=== PATIENT | male | born 1965 | race African-American/Black ===

== ENCOUNTER 2018-12-18 09:16 | Emergency (ER) | payer OTHER ==
[~2018-12-18] VITALS: Ht 274.3 cm; Wt 84.4 kg
[2018-12-18 09:21] VITALS: BP 142/83
--- NOTE | 2018-12-18 09:35 | NUR ---
Patient discharged to home in stable condition. Written and verbal after care instructions given. Patient verbalizes understanding of instruction.
== END 2018-12-18 09:37 | disposition home or self-care (01) ==
LOC: ER 09:16
DX: F10.129 Alcohol abuse with intoxication, unspecified (principal); Y90.9 Presence of alcohol in blood, level not specified; Z98.890 Other specified postprocedural states

== ENCOUNTER 2019-05-04 11:29 | Emergency (ER) | payer MEDICAID, OTHER ==
[~2019-05-04] VITALS: Ht 170.2 cm; Wt 82.6 kg
[2019-05-04] MEDS ORDERED: PANT40TA4 PO (11:50)
[2019-05-04] MEDS ORDERED: DIPH50CA38 PO (11:50)
[2019-05-04] MEDS ORDERED: BENA20TA9 PO (11:50)
[2019-05-04] MEDS ORDERED: MIRT15TA PO (11:50)
--- NOTE | 2019-05-04 11:51 | NUR ---
DR MENDIETA AT BEDSIDE FOR EVAL.
--- NOTE | 2019-05-04 12:00 | NUR ---
PT TO RADIOLOGY FOR HEAD CT SCAN VIA [facility].
--- NOTE | 2019-05-04 12:10 | NUR ---
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
[2019-05-04 12:33] LABS: BASOPHILS % (AUTO) 0.4 % (0.0-2.0); EOSINOPHILS % (AUTO) 7.5 % (0.0-6.0); HEMATOCRIT 48 % (39-51); HEMOGLOBIN 16.2 g/dL (13.5-17.5); LYMPHOCYTES % (AUTO) 24.1 % (20.0-44.0); MEAN CORPUSCULAR HGB CONC 34 g/dl (31.0-36.0); MEAN CORPUSCULAR VOLUME 96 fL (80-96); MONOCYTES # (AUTO) 0.5 /CMM (0.1-1.30); MONOCYTES % (AUTO) 11.9 % (2.0-12.0); NEUTROPHILS # (AUTO) 2.3 /CMM (1.8-8.9); NEUTROPHILS % (AUTO) 56.1 % (43.0-81.0); PLATELET COUNT (AUTO) 195 /CMM (150-450); RED BLOOD CELL COUNT(AUTO) 5.02 MIL/uL (4.5-6.0); WHITE BLOOD COUNT (AUTO) 4.1 K/uL (4.3-11.0)
[2019-05-04 12:40] LABS: CALCIUM, SERUM 8.3 mg/dL (8.5-10.1); CREATININE 1.2 mg/dL (0.6-1.3); POTASSIUM 4.1 mmol/L (3.5-5.1)
[2019-05-04 12:46] LABS: BILIRUBIN,DIRECT 0.1 mg/dL (0.0-0.2); BILIRUBIN,TOTAL 0.4 mg/dL (0.2-1.0); TOTAL PROTEIN, SERUM 6.2 g/dL (6.4-8.2)
--- NOTE | 2019-05-04 13:11 | NUR ---
Patient discharged to home in stable condition. Written and verbal after care instructions given. Patient verbalizes understanding of instruction.
[2019-05-04 13:12] VITALS: BP 124/82
== END 2019-05-04 13:13 | disposition home or self-care (01) ==
LOC: ER 11:29
DX: R20.2 Paresthesia of skin (principal); R51 Headache; R42 Dizziness and giddiness; I10 Essential (primary) hypertension; Z98.890 Other specified postprocedural states; Z79.899 Other long term (current) drug therapy
CPT/HCPCS: 36415; 70450-TC; 72125-TC; 80048-TC; 80076-TC; 82962-TC; 85025-TC

== ENCOUNTER 2022-11-29 07:48 | Emergency (ER) | payer MEDICAID ==
[~2022-11-29] VITALS: Ht 170.2 cm; Wt 87.5 kg
[~2022-11-29 07:48] MED LIST: BENA20TA9 PO; DIPH50CA38 PO; MIRT-121 PO; PANT40TA49 PO
[2022-11-29] MEDS ORDERED: IV NS 0.9% 1,000 ML BAG IV ONE (08:00)
[2022-11-29 08:24] LABS: APPEARANCE,URINE CLEAR (CLEAR); BILIRUBIN,URINE NEGATIVE (NEGATIVE); BLOOD, URINE NEGATIVE Ery/uL (NEGATIVE); COLOR,URINE YELLOW (YELLOW); KETONES,URINE NEGATIVE (NEGATIVE); LEUKOCYTE ESTERASE ,URINE NEGATIVE (NEGATIVE); NITRITE, URINE NEGATIVE (NEGATIVE); PH,URINE 5.5 (5.0-8.0); PROTEIN,URINE NEGATIVE (NEGATIVE); UGLUCOSE NEGATIVE (NEGATIVE); UROBILINOGEN,URINE 0.2 EU/dL (0.2)
[2022-11-29 08:30] LABS: BASOPHILS % (AUTO) 0.8 % (0.0-2.0); EOSINOPHILS # (AUTO) 0.2 K/uL (0.0-0.7); EOSINOPHILS % (AUTO) 7.1 % (0.0-6.0); HEMATOCRIT 40 % (39-51); HEMOGLOBIN 13.8 g/dL (13.5-17.5); LYMPHOCYTES # (AUTO) 0.8 K/uL (0.8-4.8); LYMPHOCYTES % (AUTO) 24.4 % (20.0-44.0); MEAN CORPUSCULAR HEMOGLOBIN 33 PG (26.0-33.0); MEAN CORPUSCULAR HGB CONC 35 g/dl (31.0-36.0); MEAN CORPUSCULAR VOLUME 96 fL (80-96); MONOCYTES # (AUTO) 0.4 K/uL (0.1-1.30); MONOCYTES % (AUTO) 12.6 % (2.0-12.0); NEUTROPHILS # (AUTO) 1.8 K/uL (1.8-8.9); NEUTROPHILS % (AUTO) 55.1 % (43.0-81.0); PLATELET COUNT (AUTO) 217 K/uL (150-450); RED BLOOD CELL COUNT(AUTO) 4.18 MIL/uL (4.5-6.0); RED CELL DISTRIBUTION WIDTH 13.5 % (11.5-15.0); WHITE BLOOD COUNT (AUTO) 3.3 K/uL (4.3-11.0)
[2022-11-29 08:51] LABS: CALCIUM, SERUM 8.4 mg/dL (8.5-10.1); CREATININE 1.1 mg/dL (0.6-1.3); POTASSIUM 3.6 mmol/L (3.5-5.1)
[2022-11-29 09:03] LABS: BILIRUBIN,DIRECT 0.2 mg/dL (0.0-0.2); BILIRUBIN,TOTAL 0.6 mg/dL (0.2-1.0)
[2022-11-29] MEDS ORDERED: MORPHINE SULFATE INJ 2 MG/ML DISP.SYRIN IV ONE (09:30)
[2022-11-29] MEDS ORDERED: ONDANSETRON HCL/PF 4 MG/2 ML VIAL IV ONE (09:30)
[2022-11-29] MEDS ORDERED: MORPHINE SULFATE INJ 4 MG/ML DISP.SYRIN ONE (09:31)
[2022-11-29] MEDS ORDERED: ONDANSETRON HCL/PF 4 MG/2 ML VIAL ONE (09:31)
[2022-11-29] MEDS ORDERED: IBUP-1955 PO (09:35)
[2022-11-29] MEDS ORDERED: ACETAMINOPHEN 325 MG TABLET ONE (09:38)
[2022-11-29 09:46] VITALS: BP 141/89; TEMP 97.8; O2SAT 98
[2022-11-29] MEDS ORDERED: ACETAMINOPHEN 325 MG TABLET PO ONE (10:00)
== END 2022-11-29 09:46 | disposition home or self-care (01) ==
LOC: ER 07:48
DX: R10.32 Left lower quadrant pain (principal)
CPT/HCPCS: 99284; 74176; 96360; 85025; 80048; 83690; 80076; 81003; 36415; J7030; J2270; J2405